=== PATIENT | female | born 1985 | race Two or more races ===

== ENCOUNTER 2020-10-31 08:30 | Inpatient (IN) | payer MEDICAID ==
[2020-10-31] MEDS: cefOXitin 2 GM Vial ONE ×3 (07:59→12:48)
[~2020-10-31 08:30] MED LIST: Acetaminophen 500 MG Tab PO ONE; Celecoxib 200 MG Cap PO ONE; Dexamethasone 4 MG/ML SDV ONE; Dextrose 5%-Lactated Ringers 1,000 ML IV SCH; Glycopyrrolate 0.2 MG/ML 5 ML MDV ONE; Ketamine 50 MG in Sodium Chloride 0.9% 49.5 ML IV SCH; Ketamine 500 MG/5 ML MDV IV SCH; Magnesium Sulfate 3.6 GM in Sodium Chloride 0.9% 100 ML IV SCH; Neostigmine Methylsulfate 1 MG/ML 5 ML Syringe ONE; Ondansetron 4 MG/2 ML SDV ONE; Propofol 200 MG/20 ML SDV ONE; Rocuronium 50 MG/5 ML Vial ONE; Succinylcholine 200 MG/10 ML MDV ONE; cefOXitin 2 GM in Sodium Chloride 0.9% 50 ML IV ONE; fentaNYL 250 MCG/5 ML SDV ONE
[2020-10-31] MEDS ORDERED: Acetaminophen 500 MG Tab PO ONE (09:00)
[2020-10-31] MEDS ORDERED: Scopolamine 1.5 MG Transdermal Patch TRDERM SCH (09:00)
[2020-10-31] MEDS ORDERED: Celecoxib 200 MG Cap PO ONE (09:01)
[2020-10-31] MEDS: MAGNESIUM SULFATE IV ONE ×2 (10:16→15:20)
[2020-10-31] MEDS: SODIUM CHLORIDE 0.9% IV ONE ×2 (10:16→15:20)
[2020-10-31] MEDS ORDERED: fentaNYL 250 MCG/5 ML SDV ONE (11:25)
[2020-10-31] MEDS: Ketoconazole 2% Crm 30 GM Tube TOP SCH (11:36)
[2020-10-31] MEDS ORDERED: Labetalol 20 MG/4 ML Syringe ONE (12:06)
[2020-10-31] MEDS ORDERED: Cyclobenzaprine 10 MG Tab PO PRN (14:23)
[2020-10-31] MEDS ORDERED: Dextrose 5%-Lactated Ringers 1,000 ML IV SCH (14:30)
[2020-10-31] MEDS ORDERED: Lactated Ringers 1,000 ML IV SCH (14:30)
[2020-10-31] MEDS ORDERED: 50% Dextrose in Water 50 ML Syringe IVPUSH PRN (15:00)
[2020-10-31] MEDS ORDERED: HYDROmorphone 1 MG/ML Syringe IV PRN (15:00)
[2020-10-31] MEDS ORDERED: Labetalol 20 MG/4 ML Syringe IVPUSH PRN (15:00)
[2020-10-31] MEDS ORDERED: HYDROmorphone 0.5 MG/0.5 ML Syringe IVPUSH PRN (15:00)
[2020-10-31] MEDS ORDERED: Acetaminophen 500 MG Tab PO PRN (15:00)
[2020-10-31] MEDS ORDERED: diphenhydrAMINE 50 MG/ML SDV IVPUSH PRN (15:00)
[2020-10-31] MEDS ORDERED: Ondansetron 4 MG/2 ML SDV IVPUSH PRN (15:00)
[2020-10-31] MEDS ORDERED: Insulin Lispro 100 Unit/ML 3 ML KwikPen SUBCUT PRN (15:00)
[2020-10-31] MEDS ORDERED: Glucagon,Human Recombinant 1 MG Vial IM PRN (15:00)
[2020-10-31] MEDS ORDERED: Metoclopramide 10 MG/2 ML SDV IVPUSH PRN (15:00)
[2020-10-31] MEDS ORDERED: Calcium Gluconate 10% 1 GM/10 ML SDV IVPUSH PRN (15:00)
[2020-10-31] MEDS ORDERED: Albuterol/Ipratropium 3.0-0.5 MG/3 ML Neb Soln INH PRN (15:00)
[2020-10-31] MEDS ORDERED: MVI, Adult with Vitamin K 10 ML, Thiamine 200 MG, Zinc/Copper/Manganese/Selenium 1 ML i... IV SCH ×4 (16:00)
[2020-10-31] MEDS ORDERED: Pantoprazole 40 MG Vial IVPUSH SCH (16:00)
[2020-10-31] MEDS: hydrOXYzine HCL 100 MG/2 ML SDV IM PRN ×2 (16:12→20:59)
[2020-10-31] MEDS: cefOXitin 2 GM in Sodium Chloride 0.9% 50 ML IV SCH ×2 (16:14→22:40)
[2020-10-31] MEDS ORDERED: metFORMIN 500 MG Tab PO SCH (17:00)
[2020-10-31] MEDS: Acetaminophen 500 MG Tab PO SCH (17:48)
[2020-10-31] MEDS: oxyCODONE 5 MG Tab PO PRN (17:52)
[2020-10-31] MEDS: Heparin Sodium 5,000 Units/ML Vial SUBCUT SCH (21:01)
[2020-10-31] MEDS: Prazosin 1 MG Cap PO SCH (21:05)
[2020-10-31] MEDS: Verapamil 80 MG Tab PO SCH (21:06)
[2020-10-31] MEDS: traZODone 50 MG Tab PO SCH (21:06)
[2020-11-01] MEDS: oxyCODONE 5 MG Tab PO PRN ×4 (00:16→17:41)
[2020-11-01] MEDS: Acetaminophen 500 MG Tab PO SCH ×3 (02:52→17:41)
[2020-11-01] MEDS ORDERED: Iopamidol 612 MG/ML 50 ML SDV PO STA (03:50)
[2020-11-01] MEDS: cefOXitin 2 GM in Sodium Chloride 0.9% 50 ML IV SCH ×4 (05:46→22:52)
[2020-11-01] MEDS ORDERED: hydrOXYzine HCl 25 MG Tab PO PRN (07:00)
[2020-11-01] MEDS ORDERED: Ondansetron 4 MG Tab.DIS PO PRN (07:00)
--- NOTE | 2020-11-01 08:05 | PN ---
DATE OF SERVICE: 11/01/2020 SUBJECTIVE: Kristen Garrett is a pleasant 35-year-old female. She is alert, orientated. Vital signs have been stable. Upper GI was normal this morning. Oral intake is 920. Urine output was 750. TALYA drain put out 150 mL of a light red drainage. She has been up, ambulating, and pain has been controlled. REVIEW OF SYSTEMS: Remainder of review of systems negative for any pertinent positives and negatives. OBJECTIVE: GENERAL: Kristen Garrett is a pleasant 35-year-old female. She is alert and orientated. VITAL SIGNS: TPR 98.1, 95, 18, blood pressure 98/63. HEENT: Negative. NECK: Supple. HEART: Regular rate and rhythm. LUNGS: Clear. ABDOMEN: Dressings dry and intact. TALYA drain intact. Abdominal binder is on. EXTREMITIES: Without peripheral edema. ASSESSMENT: 1. Laparoscopic Julia-en-Y gastric bypass surgery. 2. Liver biopsy. 3. Repair of diaphragmatic hernia. 4. Excision of mediastinal lipoma. POSTOPERATIVE DIAGNOSES: 1. Morbid obesity, hepatomegaly, diaphragmatic hernia, and mediastinal lipoma. 2. Date of surgical procedure: 10/31/2020. Surgeon: Anthony Tamayo MD. PLAN: 1. Discontinue D5 LR IV. 2. Lactated Ringer's IV at 100 mL per hour. 3. Discontinue metformin. 4. Atarax 25 mg every 4 hours p.r.n. pain. 5. Dressing off, may shower. 6. Step 2 gastric bypass diet with no cereal. 7. Communication order written for 3 med cups every hour, record at bedside. 8. Discontinue continuous pulse ox. 9. Discontinue monitor worker. 10.Continue use of incentive spirometer. 11.Consult the simulation educator to teach the patient to check blood sugars at home. 12.We will evaluate p.r.n. or in a.m. Awilda Gonzalez PA-C /[id number]
[2020-11-01] MEDS: Lactated Ringers 1,000 ML IV SCH (08:07)
[2020-11-01] MEDS: Heparin Sodium 5,000 Units/ML Vial SUBCUT SCH ×2 (08:09→20:31)
[2020-11-01] MEDS: Celecoxib 200 MG Cap PO SCH ×2 (08:09→20:32)
[2020-11-01] MEDS: ARIPiprazole 10 MG Tab PO SCH (08:09)
[2020-11-01] MEDS: Verapamil 80 MG Tab PO SCH ×2 (08:10→20:32)
[2020-11-01] MEDS: lamoTRIgine 25 MG Tab PO SCH (08:10)
[2020-11-01] MEDS: Sertraline 50 MG Tab PO SCH (08:10)
[2020-11-01] MEDS: Ketoconazole 2% Crm 30 GM Tube TOP SCH (08:10)
[2020-11-01] MEDS: Amphetamine/Dextroamphetamine Salts 10 MG Tab PO SCH (08:18)
[2020-11-01] MEDS: SCOPOLAMINE PATCH CHECK TOP SCH (09:20)
--- NOTE | 2020-11-01 09:33 | CR ---
[facility] HISTORY: Postbariatric surgery FINDINGS: Patient swallowed water-soluble contrast. Upright views of the abdomen show no evidence of extravasation or obstruction. There is a surgical drain in the left upper quadrant. There is some streaky density in the left lower lobe which is most likely some subsegmental atelectasis. IMPRESSION: Status post bariatric surgery No extravasation or obstruction seen Patchy airspace disease left lower lobe
[2020-11-01] MEDS ORDERED: Amphetamine/Dextroamphetamine Salts 10 MG Tab PO SCH (12:00)
[2020-11-01] MEDS ORDERED: MVI, Adult with Vitamin K 10 ML, Thiamine 200 MG, Zinc/Copper/Manganese/Selenium 1 ML i... IV SCH ×4 (16:00)
[2020-11-01] MEDS ORDERED: Pantoprazole 40 MG Delayed-Release Granules 1 Packet PO SCH (16:30)
[2020-11-01] MEDS ORDERED: Insulin Lispro 100 Unit/ML 3 ML KwikPen SUBCUT PRN (20:19)
[2020-11-01] MEDS: Prazosin 1 MG Cap PO SCH (20:32)
[2020-11-01] MEDS: traZODone 50 MG Tab PO SCH (20:33)
[2020-11-01] MEDS ORDERED: guanFACINE 1 MG Tab PO SCH (21:00)
[2020-11-02] MEDS: oxyCODONE 5 MG Tab PO PRN ×2 (00:05→06:13)
[2020-11-02] MEDS: Acetaminophen 500 MG Tab PO SCH ×2 (02:50→09:30)
[2020-11-02] MEDS: Lactated Ringers 1,000 ML IV SCH (04:12)
[2020-11-02] MEDS: cefOXitin 2 GM in Sodium Chloride 0.9% 50 ML IV SCH (04:15)
[2020-11-02] MEDS: Heparin Sodium 5,000 Units/ML Vial SUBCUT SCH (07:47)
[2020-11-02] MEDS: Amphetamine/Dextroamphetamine Salts 10 MG Tab PO SCH (07:47)
[2020-11-02] MEDS: Sertraline 50 MG Tab PO SCH (08:11)
[2020-11-02] MEDS: Celecoxib 200 MG Cap PO SCH (08:11)
[2020-11-02] MEDS: lamoTRIgine 25 MG Tab PO SCH (08:11)
[2020-11-02] MEDS: ARIPiprazole 10 MG Tab PO SCH (08:11)
[2020-11-02] MEDS: Ketoconazole 2% Crm 30 GM Tube TOP SCH (08:12)
[2020-11-02] MEDS: SCOPOLAMINE PATCH CHECK TOP SCH (08:12)
[2020-11-02] MEDS: Verapamil 80 MG Tab PO SCH (08:13)
[2020-11-02] MEDS ORDERED: Cyanocobalamin (Vitamin B12) 1,000 MCG/ML SDV IM ONE (09:00)
--- NOTE | 2020-11-02 09:54 | DISCH ---
ADMISSION DIAGNOSES: 1. Morbid obesity. 2. Body mass index 48. 3. Chronic headache. 4. Mild intermittent asthma. 5. Attention deficit hyperactivity disorder. 6. Prediabetes. 7. Anxiety. 8. Post-traumatic stress disorder. 9. Moderate episode of major depression disorder. DISCHARGE DIAGNOSES: 1. Laparoscopic Julia-en-Y gastric bypass surgery. 2. Liver biopsy. 3. Repair of diaphragmatic hernia. 4. Excision of mediastinal lipoma. POSTOPERATIVE DIAGNOSES: 1. Morbid obesity. 2. Hepatomegaly. 3. Diaphragmatic hernia. 4. Mediastinal lipoma. Date of her surgical procedure: 10/31/2020. Surgeon: Anthony Tamayo MD. HISTORY: Kristen Garrett is a 35-year-old female with longstanding history of morbid obesity and increasing comorbidities. After preoperative evaluation and discussion of possible risks and possible complications, she wishes to proceed with surgical procedure. HOSPITAL COURSE: Kristen had her surgery on 10/31/2020. She had no operative complications. On postoperative day #1, her upper GI was normal. Blood sugars were monitored and her diabetic medication was discontinued. She was started on a step 2 gastric bypass diet with no cereal. She received dietary instruction and she was taught how to check her blood sugars. On postoperative day #2, vital signs were stable. Pain was managed per energy protocol and she received vitamin B12 1000 mcg IM and she was able to be discharged to home. Blood sugar on day of discharge was 149. PHYSICAL EXAMINATION: GENERAL: Kristen Garrett is a pleasant 35-year-old female, alert and orientated. VITAL SIGNS: Height 5 feet 3 inches, weight is 272 pounds 12.8 ounces, BMI is 48. TPR 96.5, 91, 18, blood pressure 121/70. HEENT: Negative. NECK: Supple. HEART: Regular rate and rhythm. LUNGS: Clear. ABDOMEN: Dressings dry and intact. Trocar incisions look good. Her TALYA drain will be removed before discharge and 4x4s will be placed over that. EXTREMITIES: Without peripheral edema. DISPOSITION: Discharged to adult foster home. FOLLOWUP APPOINTMENT: With Awilda Gonzalez PA-C, on 11/10/2020 at 11 a.m. NEW PRESCRIPTIONS: 1. Hydroxyzine 25 mg oral every 4 hours p.r.n. pain #30. 2. Ketoconazole 2% cream apply to area around the umbilicus 2 times daily, 30 g. 3. Tylenol Extra Strength 1000 mg every 8 hours p.r.n. pain. 4. Zofran ODT 4 mg q.4 hours p.r.n. nausea. 5. She is to start taking the Celebrex 200 mg twice daily orally, and she has enough for 2 weeks. She will start that tonight. 6. To resume home medication: a. Abilify 10 mg oral daily. b. Benzoyl peroxide acne treatment cleansing bar use as directed. c. Benzoyl peroxide Clear Pore 1 applicator topical as directed. d. Adderall 30 mg oral every a.m. e. Adderall 20 mg daily every noon. f. Prazosin 2 mg at bedtime. g. Sertraline (Zoloft) 200 mg oral. h. Verapamil 60 mg oral twice daily. i. Guanfacine 1 mg oral at bedtime. j. Lamotrigine 50 mg oral daily. k. Trazodone 100 mg oral at bedtime. 7. Stop taking: a. Calcium Soft Chews. b. Vitamin D3. c. Vitamin B12. d. Jardiance. e. Ferrous sulfate. f. Diflucan. g. Victoza. h. Multivitamin. i. Vitamin B complex. j. Metformin. DIET: Step 2 gastric bypass diet with no cereal until 11/15/2020. ACTIVITY: After discharge, no lifting over 10 pounds for 2 weeks. OTHER ACTIVITY: Walk 6 times daily inside your house. Driving after discharge: Do not drive for 1 week. Shower/bathing: May shower. Notify provider if any fever, increased pain, swelling, redness, drainage, nausea, or vomiting. Wound incision care: Keep site clean and dry. Wear abdominal binder for 2 weeks and then as tolerated. SPECIAL INSTRUCTIONS: 1. Check blood sugars 4 times a day and bring results to clinic appointment. 2. Keep a journal and write everything you eat and drink and add up the amount of protein and liquids per day. The goal 65 g of protein in 64 ounces of water. 3. Use incentive spirometer 10 times every hour while awake for 1 week. /[id number]
--- NOTE | 2020-11-07 09:41 | OR ---
DATE OF PROCEDURE: 10/31/2020 SURGEON: Anthony Tamayo MD PREOPERATIVE DIAGNOSIS: Morbid obesity. POSTOPERATIVE DIAGNOSES: 1. Morbid obesity. 2. Marked hepatomegaly. 3. Paraesophageal diaphragmatic hernia. 4. Mediastinal lipoma. OPERATIVE PROCEDURES: 1. Laparoscopic Julia-en-Y gastric bypass with long limb gastroenterostomy (35638). 2. Francisco-Cut needle liver biopsy (22174). 3. Repair of paraesophageal diaphragmatic hernia (60899). 4. Excision of mediastinal lipoma (87227). ANESTHESIA: General. SNORKELLING INSTRUCTOR: Awilda Gonzalez PA-C INDICATIONS FOR PROCEDURE: This is a 35-year-old presenting with longstanding morbid obesity and increasingly significant comorbidities. After preoperative evaluation and discussion, she wished to proceed with a gastric bypass procedure. Potential risks of procedure including bleeding, infection, leaks from various GI tract closures, and problems with bowel obstruction over time as well as possibility of cardiopulmonary, septic, or hemorrhagic complications leading to were all discussed, and the patient wishes to proceed. DETAILS OF PROCEDURE: The patient was taken to the operating room, placed in a supine position. After general endotracheal anesthesia was induced, she was converted to a lithotomy position, and the abdomen was prepped and draped. 15 cm inferior and 5 cm left of the xiphoid process, a transverse incision was made, and the peritoneal cavity entered under direct vision with an Optiview trocar, inflated to 15 mmHg pressure of CO2. Laparoscope was then reinserted. No underlying trocar insertion site injuries were seen. Bilateral transversus abdominis plane blocks were then placed, and 5 additional trocars were placed across the upper mid abdomen. The patient was noted to have marked hepatomegaly with liver volume being roughly 2 to 3 times normal and liver grossly fatty infiltrated. Francisco-Cut needle biopsies were obtained from left lobe of liver. Minimal bleeding from the biopsy sites was controlled with electrocautery. The omentum was then divided in the midline up to the level of the transverse colon. This allowed identification of the small bowel to the ligament of Treitz. Small bowel was traced out 150 cm distal to that point where it was divided transversely with a EMILY stapler. Small bowel was then traced out an additional 175 cm where the [id number] enteroenterostomy was accomplished with internal firing of the Endo-EMILY 60 mm stapler. Common opening was then closed transversely with same stapler, angles anastomosed, and mesenteric defect approximated with some 0 Ethibond stitch along with fibrin sealant. The divided end of Julia limb was from the mesentery for a few centimeters, which allowed an antecolic positioning of the Julia limb up to the level of the gastroesophageal junction without tension. The limb was then retracted anteriorly. The patient was noted to have a moderate-sized paraesophageal diaphragmatic hernia containing some perigastric fat along with gastric fundus. This was reduced to the peritoneum overlying it, incised and reflected downwards. During the course of the dissection, a mediastinal lipoma was encountered, and this was excised in order to facilitate more adequate repair of the diaphragmatic crura, which was then accomplished with 0 Ethibond sutures reinforced with PTFE pledgets. The gastrointestinal catheter was then inflated 15 mL and pulled up snugly against the EG junction. Gastric wall over the apex balloon was then marked with electrocautery. Balloon catheter was deflated and pulled up from the esophagus. The lesser omental tissue adjacent to the gastric cardia was then incised allowing dissection behind the stomach at that level. Pouch formation was initiated with transverse firing of the MEILY stapler at the level of the cauterized sam in the gastric cardia and completed with some additional firings of EMILY stapler up to and through the angle of His. Upon completion of the pouch, both staple lines were noted to be intact. The anvil of a 25 mm EEA stapler was attached to [place] sump-type tube. The latter was brought down through the mouth, taken out through small opening in the gastric pouch, and allowing the anvil likewise to be pulled down to within the gastric pouch. The divided end of Julia limb was then opened and main body of EEA stapler passed several centimeters into the lumen of small bowel, brought up the anvil, and united with it thus creating the gastrojejunostomy. Upon removal of the stapler, double donuts of mucosa were noted within it. Small bowel was closed off with a vascular staple line. Gastrojejunostomy was reinforced with some 3-0 Vicryl seromuscular stitch along with fibrin sealant. A leak test was accomplished with injection of 120 mL of air in the gastric pouch while it was submerged with cefoxitin-containing saline solution. A single Wallace-Mace drain was taken out through the left lateral trocar site, placed adjacent to the gastric cardia, and from there up into the splenic fossa. Trocars were then removed, and peritoneal cavity deflated. The incision was closed with 4-0 Vicryl skin stitch and drain affixed with 4-0 Vicryl stitch as well. Dressing was applied. The patient was taken to the recovery room in satisfactory condition. Physician client services assistant, Awilda Gonzalez PA-C, played an essential role in assisting in this case, helping to position the patient, and retract structures as needed, as well as suturing and cutting sutures when indicated. Her presence improved patient safety and decreased the operative time. Anthony Tamayo MD /[id number]
== END 2020-11-02 10:42 | DRG 621 ==
LOC: JP.SDSSCHI 08:30 → JP.SDS 08:30 → EDSTATUS 10:45 → JP.MS 13:10
PROVIDERS: ADMIT Surgery; ATTEND Surgery
PROC: 0D164ZA Bypass Stomach to Jejunum, Percutaneous Endoscopic Approach (ICD-10-PCS; principal; 2020-10-31)
PROC: 0FB24ZX Excision of Left Lobe Liver, Percutaneous Endoscopic Approach, Diagnostic (ICD-10-PCS; 2020-10-31)
PROC: 0BQT4ZZ Repair Diaphragm, Percutaneous Endoscopic Approach (ICD-10-PCS; 2020-10-31)
PROC: 0JB63ZZ Excision of Chest Subcutaneous Tissue and Fascia, Percutaneous Approach (ICD-10-PCS; 2020-10-31)
DX: E66.01 Morbid (severe) obesity due to excess calories (principal); Z68.42 Body mass index [BMI] 45.0-49.9, adult; J45.20 Mild intermittent asthma, uncomplicated; F90.9 Attention-deficit hyperactivity disorder, unspecified type; F41.9 Anxiety disorder, unspecified; F43.10 Post-traumatic stress disorder, unspecified; F32.9 Major depressive disorder, single episode, unspecified; R16.0 Hepatomegaly, not elsewhere classified; K44.9 Diaphragmatic hernia without obstruction or gangrene; D17.1 Benign lipomatous neoplasm of skin and subcutaneous tissue of trunk; R73.03 Prediabetes; Z79.899 Other long term (current) drug therapy; Z88.8 Allergy status to other drugs, medicaments and biological substances
CPT/HCPCS: 36415; 74240; 74240-26; 81025; 82962; 86850; 86900; 86901; 88304; 88307; 88313; 93005; A9270-GY; C9113; J0171; J0330; J0694; J1100; J1170; J1644; J1815; J1815-GY; J2405; J2704; J2710; J2795; J3010; J3410; J3411; J3420; J3475; J3490; J7030; J7050; J7120; J7121; Q9967